=== PATIENT | female | born 1985 | race Caucasian/White ===

== ENCOUNTER 2018-01-27 16:11 | Emergency (ER) | payer BC ==
--- NOTE | 2018-01-27 17:08 | PD ---
HPI Chief Complaint ctx Date Seen: Jan 27, 2018 Time Seen: 16:56 Travel History International Travel<30 Days: No Contact w/Intl Traveler<30Days: No Known Affected Area: No History of Present Illness HPI Pt is a 32y/o @ 23.6wks. She has PNC with Dr. Mayfield. She has a h/o CI with 20wk delivery. She then requested abdominal cerclage placement prior to G2. With G2 she was on 17-OHP. She had PTL at 35.6wks and underwent 1' CS. This she is also on 17-OHP. She presents today c/o ctx starting around 2pm. She states that they are painful. She denies LOF or VB. +FM. She reports that she is well hydrated and has not had any emesis/diarrhea. Weeks Gestation: 23 Para: 2 : 3 Last Menstrual Period: Jan 27, 2018 History Past Medical History Medical History: Denies Significant Hx Obstetric History Obstetric History 1. 20wk loss 2' to CI 2. 35wk PTL, 1'CS due to abdominal cerclage, on 17-OHP 3. current, on 17-OHP Past Surgical History Narrative Surgical abdominal cerclage placement c/s Family History Family History: Negative Social History Alcohol Use: No Tobacco Use: No Substance Abuse: No Allergies-Medications (Allergen,Severity, Reaction): Coded Allergies: No Known Allergies (Verified Allergy, Mild, 05/14/08) Review of Systems Except as stated in HPI: all other systems reviewed are Neg Physical Exam Narrative General: well developed, well nourished, no acute distress HEENT: normocephalic atraumatic, extraocular movements intact, neck supple Abdomen: soft, gravid, nontender, nondistended Uterus: fundus soft just above umbilicus Extremities: full range of motion Skin: normal coloration, no rashes, no suspicious skin lesions noted Neurologic: cranial nerves 2-12 grossly intact, normal muscle tone, normal gait Psychiatric: normal mood and affect, appropriate FHTs: age appropriate NST, 150s, variables present [place]: no ctx seen Data Data Orders Orders Vital Signs (Adult) .ON ADMISSION (01/27/18 16:55) ^ Labor Status (01/27/18 16:55) Urinalysis - C+S If Indicated (01/27/18 16:55) ^ Non Stress Test (01/27/18 16:55) MDM Plan 32y/o @ 23.6wks with h/o cervical incompetence, abdominal cerclage in place, h/o PTD on 17-OHP, h/o CSx1, with reported ctx. -- toco without evidence of ctx -- uterus palpates soft even when pt states she is having a ctx -- UA negative for UTI -- FHTs age appropriate Dispo: stable for d/c home with precautions and reassurance Diagnosis Diagnosis: Primary Impression: 23 weeks gestation of Additional Impressions: Uterine contractions during History of delivery Cervical cerclage suture present Cervical incompetence History of delivery Phoenix Cooper MD Jan 27, 2018 17:08
== END 2018-01-27 18:15 | disposition home or self-care (01) ==
LOC: HOBED 16:11
DX: O47.02 False labor before 37 completed weeks of gestation, second trimester (principal); O34.32 Maternal care for cervical incompetence, second trimester; O34.219 Maternal care for unspecified type scar from previous cesarean delivery; Z3A.23 23 weeks gestation of pregnancy
CPT/HCPCS: 99283

== ENCOUNTER 2018-04-07 18:48 | Inpatient (IN) | payer BC ==
[2018-04-07] VITALS (7 sets, daily range): BP systolic 96–116; BP diastolic 52–73; PULSE 86–92; RESP 16
[~2018-04-07] VITALS: Ht 170.2 cm; Wt 72.0 kg
--- NOTE | 2018-04-07 19:35 | PD ---
HPI Chief Complaint Contractions Date Seen: April 07, 2018 Time Seen: 19:31 Travel History International Travel<30 Days: No Contact w/Intl Traveler<30Days: No Known Affected Area: No History of Present Illness HPI 32-year-old who is at 33 weeks and 6 days comes in complaining of contractions that began at approximately 4 PM. She states that they have been irregular occurring every 6-10 minutes and are mildly uncomfortable. Patient denies vaginal discharge, vaginal bleeding, or ruptured membranes. She has a history significant for an incompetent cervix with a first resulting in a 21 week loss. She had an abdominal cerclage placed prior to her second which was a section at 35 weeks and 6 days. Patient was on Rosey with her second and with this . Patient has had contractions during this but none that have lasted greater than 2 hours. Abdominal cerclage is still in place, patient was checked this morning and her cervix was closed by Dr. Mayfield Weeks Gestation: 33 Para: 2 : 3 History Past Medical History Medical History: Denies Significant Hx Obstetric History Obstetric History 21 week loss with a diagnosis of incompetent cervix section with her second child at 35-36 weeks gestation Past Surgical History Narrative Surgical Abdominal cerclage Bunionectomy Family History Family History: Negative Social History Alcohol Use: No Tobacco Use: No Substance Abuse: No Allergies-Medications (Allergen,Severity, Reaction): Coded Allergies: No Known Allergies (Verified Allergy, Mild, 05/14/08) Home Meds Reported Medications Hydroxyprogesterone Caproate Inj (Cushing Inj) 250 Mg/Ml Inj, 250 MG IM WEEKLY for , #1 VIAL 0 Refills 04/07/18 Loratadine (Claritin) 10 Mg Cap, 10 MG PO DAILY for Allergy Management, CAP 0 Refills 04/07/18 Pnv No.95/Ferrous Fum/Folic AC ( Vitamins Tablet) 28 Mg Iron-800 Mcg Tablet 04/07/18 Review of Systems Except as stated in HPI: all other systems reviewed are Neg Physical Exam Narrative GENERAL: Well-nourished, well-developed patient. SKIN: Warm and dry. HEAD: Normocephalic and atraumatic. EYES: No scleral icterus. No injection or drainage. ENT: No nasal drainage noted. Mucous membranes pink. Airway patent. NECK: Supple, trachea midline. No JVD. CARDIOVASCULAR: Regular rate and rhythm without murmurs, gallops, or rubs. RESPIRATORY: Breath sounds equal bilaterally. No accessory muscle use. ABDOMEN/GI: Abdomen soft, non-tender, bowel sounds present, no rebound, no guarding Gravid to [-33] weeks size Fundal Height: [-] GENITOURINARY: External Genitalia: intact and normal in appearance BUS glands: [Normal-] Cervix: [-] Midposition Dilatation: [-] Internal office is closed with a palpable abdominal cerclage Effacement: [-] Station: [-] Presentation: [-] High Membranes: [intact or ruptured] intact Uterine Contractions: [-] Every 3 minutes FHT's: Category: [-] 1 Baseline: [-] 140 Reactive: [-] Moderate Variability: [-] Moderate Decels: [-] Absent EXTREMITIES: No cyanosis or edema. BACK: Nontender without obvious deformity. No CVA tenderness. NEUROLOGICAL: Awake and alert. Motor and sensory grossly within normal limits. Five out of 5 muscle strength in all muscle groups. Normal speech. Data Data Vital Signs Reviewed: Yes [facility] Medical Record Reviewed: Yes Plan 32-year-old who is at 33 weeks 6 days, high risk for labor given her previous history Abdominal cerclage placed between her first and second , still intact with a close cervix on vaginal exam Unable to do fibronectin due to her previous examination today Group B strep was performed this morning and Dr. Mayfield's office Plan admission to labor delivery with magnesium sulfate and betamethasone as patient continues to contract despite IV fluids Diagnosis Diagnosis: Primary Impression: 33 weeks gestation of Additional Impressions: History of incompetent cervix, currently in third trimester uterine contractions in third trimester, antepartum Cervical cerclage suture present in third trimester Madelin Sanz MD April 07, 2018 19:35
[2018-04-07] MEDS ORDERED: LACTATED RINGER'S 1000 ML INJ 1,000 ML IV ONE (19:45)
[2018-04-07] MEDS ORDERED: MAKE250I IM (19:58)
[2018-04-07] MEDS ORDERED: CLAR10CA3 PO (19:58)
[2018-04-07] MEDS ORDERED: PRENTAB7 (19:58)
[2018-04-07 20:14] LABS: BACTERIA, URINE RARE /hpf; BILIRUBIN, URINE NEG (NEG); BLOOD, URINE NEG (NEG); GLUCOSE,URINE NEG (NEG); KETONE, URINE NEG (NEG); NITRITE,URINE NEG (NEG); PH, URINE 5.5 (5.0-8.5); SQUAMOUS EPITHELIAL CELL URINE 3 /hpf (0-5); URINE COLOR LIGHT-YELLOW (YELLW/STRAW); URINE LEUKOCYTE ESTERASE TRACE (NEG)
[2018-04-07] MEDS ORDERED: MAGNESIUM SULFATE 40 GM PREMIX 1,000 ML ONE (20:29)
[2018-04-07] MEDS ORDERED: ONDANSETRON HCL 4 MG/2 ML VIAL IV PUSH PRN (20:30)
[2018-04-07] MEDS ORDERED: ZOLPIDEM TARTRATE 5 MG TAB PO PRN (20:30)
[2018-04-07] MEDS ORDERED: PENICILLIN G POTASSIUM INJ 5,000,000 UNITS in SODIUM CHLORIDE 0.9% INJ 100 ML IV ONE (20:30)
[2018-04-07] MEDS ORDERED: MAGNESIUM SULFATE 4 GM PREMIX 100 ML IV ONE (20:30)
[2018-04-07] MEDS ORDERED: CALCIUM GLUCONATE 10% 1 GM/10 ML VIAL IV PUSH PRN (20:30)
[2018-04-07] MEDS ORDERED: SODIUM CHLORIDE 0.9% FLUSH 10 ML FLUSH IV FLUSH PRN (20:30)
[2018-04-07] MEDS: MAGNESIUM SULFATE 40 GM PREMIX 1,000 ML IV SCH (20:56)
[2018-04-07] MEDS: BETAMETHASONE SOD PHOS/ACETATE SUSP 30 MG/5 ML VIAL IM SCH (20:58)
[2018-04-07] MEDS: SODIUM CHLORIDE 0.9% FLUSH 10 ML FLUSH IV FLUSH SCH (21:00)
--- NOTE | 2018-04-07 21:45 | MH ---
cc: Bradford Mayfield MD, John A MD DATE OF ADMISSION: 04/07/2018 Time is 9:20 p.m. ADMITTING DIAGNOSIS: at 34-35 weeks with labor. HISTORY OF PRESENT ILLNESS: The patient is a 32-year-old white female, para 0-1-1-1 with an EDC of 05/20/2018 by early ultrasound. PAST OB HISTORY: Notable for her first delivery at 21 weeks for incompetent cervix. She had abdominal cerclage placed in 02/2015. She carried her second to 35-36 weeks with Jessup, delivering by 07/2016. She has had Jessup injections this since 16 weeks. She was doing well until 3:30 p.m. today. She began having frequent contractions, 3-6-12 minutes apart, increasing in strength and duration and came in for evaluation. She is now admitted for steroid therapy and magnesium sulfate therapy. PAST MEDICAL HISTORY: In 2017, she had right foot bunions. Medical illness: History of arrhythmia following her first delivery with normal cardiac evaluation. ALLERGIES: NONE. MEDICATIONS: Vitamins and Jessup. TRANSFUSIONS: None. SOCIAL HISTORY: She is . 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 Alcohol, tobacco and drugs are none. FAMILY HISTORY: Noncontributory. PHYSICAL EXAMINATION: GENERAL: Exam reveals a well-nourished, well-developed white female. VITAL SIGNS: Stable. HEENT: Normal. CHEST: Clear. BREASTS: Symmetrical. ABDOMEN: Gravid 34 weeks size, EFW 2000 grams, cervix exam with Dr. Sanz is closed. EXTREMITIES: Normal. ASSESSMENT: As above. PLAN: She is now admitted for steroid therapy and magnesium sulfate therapy for 24 hours. If successful, we will stop the magnesium tomorrow night and ,should she have breakthrough labor now or after that, proceed with delivery. We will plan ultrasound in the morning. Her most recent scan had shown a breech presentation with appropriate growth 2 weeks ago. MD ERIC Cespedes/ , 09:25 PM , 09:44 PM
[2018-04-07 22:28] LABS: AUTOMATED NEUTROPHIL # 7.3 TH/MM3 (1.8-7.7); BASOPHIL # 0.1 TH/MM3 (0-0.2); BASOPHIL % 0.5 % (0.0-2.0); EOSINOPHIL # 0.3 TH/MM3 (0-0.4); EOSINOPHIL % 2.7 % (0.0-4.0); HEMATOCRIT 38.1 % (35.0-46.0); LYMPH % 22.2 % (9.0-44.0); LYMPHOCYTE # 2.5 TH/MM3 (1.0-4.8); MEAN CELL VOLUME 89.3 FL (80.0-100.0); MEAN CORPUSCULAR HEMOGLOBIN 30.5 PG (27.0-34.0); MEAN CORPUSCULAR HGB CONC 34.1 % (32.0-36.0); MEAN PLATELET VOLUME 9.2 FL (7.0-11.0); MONO % 8.4 % (0.0-8.0); MONOCYTE # 0.9 TH/MM3 (0-0.9); NEUT % 66.2 % (16.0-70.0); PLATELET COUNT 192 TH/MM3 (150-450); RED BLOOD COUNT 4.26 MIL/MM3 (4.00-5.30); RED CELL DISTRIBUTION WIDTH 13.2 % (11.6-17.2); WHITE BLOOD COUNT 11.1 TH/MM3 (4.0-11.0)
[2018-04-08] VITALS (22 sets, daily range): BP systolic 86–105; BP diastolic 42–61; PULSE 82–109; RESP 15–20; TEMP 97.9–98.2
[2018-04-08] MEDS ORDERED: PENICILLIN G POTASSIUM INJ 2,500,000 UNITS in SODIUM CHLORIDE 0.9% INJ 100 ML IV SCH (00:30)
[2018-04-08] MEDS: PENICILLIN G POTASSIUM INJ 2,500,000 UNITS in SODIUM CHLORIDE 0.9% INJ 100 ML IV SCH ×4 (07:25→19:00)
[2018-04-08] MEDS: SODIUM CHLORIDE 0.9% FLUSH 10 ML FLUSH IV FLUSH SCH ×2 (09:00→19:42)
[2018-04-08 11:43] LABS: BICARBONATE 20.8 MEQ/L (21.0-32.0); CALCIUM 6.7 MG/DL (8.5-10.1); CREATININE 0.54 MG/DL (0.50-1.00)
[2018-04-08 12:19] LABS: TOTAL PROTEIN 6.1 GM/DL (6.4-8.2)
[2018-04-08 12:38] LABS: CALCIUM-PROTEIN CORRECTED 7.2 MG/DL (8.5-10.1)
[2018-04-08] MEDS: MAGNESIUM SULFATE 40 GM PREMIX 1,000 ML IV SCH (13:32)
[2018-04-08] MEDS ORDERED: MAGNESIUM SULFATE 1 GM PREMIX 100 ML IV ONE (14:00)
[2018-04-08] MEDS ORDERED: ACETAMINOPHEN 1000 MG/100 ML 100 ML IV SCH (16:30)
[2018-04-08] MEDS: BETAMETHASONE SOD PHOS/ACETATE SUSP 30 MG/5 ML VIAL IM SCH (22:05)
[2018-04-09] VITALS (10 sets, daily range): BP systolic 89–107; BP diastolic 51–65; PULSE 57–72; RESP 14–20; TEMP 97.5–98.3; O2SAT 98–100
[2018-04-09] MEDS: SODIUM CHLORIDE 0.9% FLUSH 10 ML FLUSH IV FLUSH SCH (08:47)
[2018-04-09] MEDS ORDERED: LACTATED RINGER'S 1000 ML INJ 1,000 ML IV ONE ×2 (10:19→12:00)
[2018-04-09] MEDS ORDERED: ACETAMINOPHEN 1000 MG/100 ML 100 ML IV ONE (10:22)
[2018-04-09] MEDS ORDERED: MORPHINE SULFATE PF 5 MG/10 ML VIAL ONE (10:22)
[2018-04-09] MEDS ORDERED: KETOROLAC TROMETHAMINE 60 MG/2 ML (IM) VIAL IM PRN (10:30)
[2018-04-09] MEDS ORDERED: OXYTOCIN 30 UNITS-500ML PREMIX 500 ML IV ONE (10:30)
[2018-04-09] MEDS: ACETAMINOPHEN 1000 MG/100 ML VIAL IV SCH ×2 (10:30→18:21)
[2018-04-09] MEDS ORDERED: MEASLES, MUMPS, RUBELLA VACCINE 0.5 ML VIAL SQ ONE (10:30)
[2018-04-09] MEDS ORDERED: oxyCODONE/ACETAMINOPHEN 5 MG/325 MG TAB PO PRN (10:30)
[2018-04-09] MEDS ORDERED: SIMETHICONE 80 MG CHEWABLE TAB PO PRN (10:30)
[2018-04-09] MEDS ORDERED: EPIDURAL-DIPHENHYDRAMINE HCL 50 MG/ML VIAL IV PUSH PRN (10:35)
[2018-04-09] MEDS ORDERED: EPIDURAL-NO SYSTEMIC NARCOTICS PRN (10:35)
[2018-04-09] MEDS ORDERED: EPIDURAL-DO NOT ADMINISTER ANTICOAGULANTS PRN (10:35)
[2018-04-09] MEDS ORDERED: EPIDURAL-NALOXONE HCL 0.4 MG/ML AMP IV PUSH PRN (10:35)
[2018-04-09] MEDS ORDERED: EPIDURAL-DIPHENHYDRAMINE HCL 50 MG CAP PO PRN (10:35)
[2018-04-09] MEDS ORDERED: LACTATED RINGER'S 1000 ML INJ 1,000 ML IV SCH ×2 (10:49→13:04)
[2018-04-09] MEDS ORDERED: ONDANSETRON ODT 4 MG TAB PO PRN (11:30)
[2018-04-09] MEDS ORDERED: ceFAZolin 2 GM PREMIX 50 ML IV SCH (11:30)
[2018-04-09] MEDS ORDERED: ePHEDrine/NS 25 MG/5 ML SYRINGE IV ONE (12:00)
[2018-04-09] MEDS ORDERED: ONDANSETRON HCL 4 MG/2 ML VIAL IV ONE (12:00)
[2018-04-09] MEDS ORDERED: CITRIC ACID-SODIUM CITRATE LIQ 30 ML UDC PO SCH (12:00)
[2018-04-09] MEDS ORDERED: OXYTOCIN 10 UNIT/ML AMP IV ONE (12:00)
[2018-04-09] MEDS ORDERED: PHENYLEPH/NS 1000 MCG/10 ML SYR IV ONE (12:00)
[2018-04-09] MEDS ORDERED: KETOROLAC TROMETHAMINE 60 MG/2 ML (IM) VIAL IM ONE (12:16)
[2018-04-09] MEDS ORDERED: OXYTOCIN 30 UNITS-500ML PREMIX 500 ML ONE (12:42)
--- NOTE | 2018-04-09 13:10 | MP ---
cc: Bradford Mayfield MD DATE OF OPERATION: 04/09/2018 DATE OF PROCEDURE: 04/09/2018 PREOPERATIVE DIAGNOSIS(ES): 1. at 34-35 weeks with labor. 2. Abdominal cerclage. 3. Previous section. 4. Breech presentation. POSTOPERATIVE DIAGNOSES: 1. at 34-35 weeks with labor. 2. Abdominal cerclage. 3. Previous section. 4. Breech presentation. 6. Delivered. PROCEDURE PERFORMED: Repeat low transverse section. ANESTHESIA: Spinal. SURGEON: Bradford Mayfield MD ESTIMATED BLOOD LOSS: About 600 mL. FLUIDS: 900 mL. OBJECTIVE FINDINGS: Following induction of adequate spinal anesthesia, the patient was prepped and draped supine on the operating table in left lateral tilt position in usual sterile fashion, with the bladder being drained via Haywood catheterization. The abdomen was opened through a Pfannenstiel incision using a knife to cut down through the skin to the fascia. The fascia was opened transversely, stripped from the muscles, rectus muscle split in the midline and the peritoneum opened sharply without incident. The bladder flap was taken down sharply. The abdominal cerclage was identified; it was inferior. The lower uterine segment was very thinned out and was ballooning out. It was opened transversely with a knife and extended with blunt dissection. There was clear fluid. Baby was in the shaun breech presentation, right sacral transverse. With rope tow operator guidance and fundal pressure, delivery progressed easily to the shoulder blades. Each arm was reduced. Head delivered gently. The mouth suctioned. The cord clamped and cut after milking, and the baby passed to awaiting team. A viable vigorous female. Weight was 5 pounds 4 ounces. Cord blood was taken for typing, the placenta for donation. The uterine cavity wiped clean with laps. Uterus exteriorized. Uterine wound closed in 2 layers of running suture, first a running locking stitch of Vicryl, second running imbricating stitch of Vicryl. Posterior inspection of the uterus, tubes, and ovaries noted to be normal uterus. The uterus was replaced in the peritoneal cavity. Irrigation performed. No bleeding was evident and the bladder flap was closed with running stitch of 3-0 Vicryl. All laps and retractors were removed. Counts were correct. The anterior peritoneum closed with running stitch of 2-0 Vicryl. The fascia with a running locking stitch 3-0 Vicryl, corners to the midline and tied. Subq closed with running 3-0 Vicryl and the skin with running subcuticular 3-0 Monocryl. Dermabond applied. All counts were correct and the patient was awakened and taken to the recovery in good condition. MD ERIC Cespedes/JOANN , 11:37 AM , 01:10 PM
[2018-04-09] MEDS ORDERED: LACTATED RINGER'S 1000 ML INJ 500 ML IV STA (16:13)
[2018-04-09 16:54] LABS: HEMATOCRIT 37.9 % (35.0-46.0); HEMOGLOBIN 12.9 GM/DL (11.6-15.3)
[2018-04-09] MEDS ORDERED: OXYTOCIN 30 UNITS-500ML PREMIX 500 ML IV PRN (18:15)
[2018-04-09] MEDS ORDERED: ZOLPIDEM TARTRATE 5 MG TAB PO PRN (21:00)
[2018-04-10 00:25] VITALS: BP 95/58; PULSE 58; RESP 18; TEMP 98.2
[2018-04-10] MEDS: ACETAMINOPHEN 1000 MG/100 ML VIAL IV SCH (02:30)
[2018-04-10 04:09] VITALS: BP 96/48; PULSE 70; RESP 18; TEMP 98.3
[2018-04-10 04:56] LABS: AUTOMATED NEUTROPHIL # 11.9 TH/MM3 (1.8-7.7); BASOPHIL # 0.1 TH/MM3 (0-0.2); BASOPHIL % 0.4 % (0.0-2.0); EOSINOPHIL % 0.2 % (0.0-4.0); HEMATOCRIT 38.6 % (35.0-46.0); HEMOGLOBIN 13.1 GM/DL (11.6-15.3); LYMPH % 12.4 % (9.0-44.0); LYMPHOCYTE # 1.9 TH/MM3 (1.0-4.8); MEAN CELL VOLUME 90.4 FL (80.0-100.0); MEAN CORPUSCULAR HEMOGLOBIN 30.7 PG (27.0-34.0); MEAN CORPUSCULAR HGB CONC 33.9 % (32.0-36.0); MEAN PLATELET VOLUME 8.8 FL (7.0-11.0); MONOCYTE # 1.4 TH/MM3 (0-0.9); PLATELET COUNT 231 TH/MM3 (150-450); RED BLOOD COUNT 4.27 MIL/MM3 (4.00-5.30); RED CELL DISTRIBUTION WIDTH 13.3 % (11.6-17.2); WHITE BLOOD COUNT 15.2 TH/MM3 (4.0-11.0)
[2018-04-10 05:24] LABS: BICARBONATE 23.9 MEQ/L (21.0-32.0); CALCIUM 8.3 MG/DL (8.5-10.1); CREATININE 0.58 MG/DL (0.50-1.00)
[2018-04-10] MEDS: KETOROLAC TROMETHAMINE 30 MG/ML (IVP) VIAL IV PUSH PRN ×3 (05:39→19:07)
[2018-04-10 08:06] VITALS: BP 97/53; PULSE 69; RESP 20; TEMP 98.3; O2SAT 96
[2018-04-10] MEDS: DOCUSATE SODIUM 50 MG/SENNA 8.6 MG TAB PO PRN (19:06)
[2018-04-10 19:30] VITALS: BP 94/63; PULSE 60; RESP 16; TEMP 98.1
[2018-04-11] MEDS: KETOROLAC TROMETHAMINE 30 MG/ML (IVP) VIAL IV PUSH PRN ×3 (03:52→15:52)
[2018-04-11] MEDS ORDERED: DIPHTH/TETANUS/ACEL PERTUSSIS (BOOSTER) 0.5 ML VIAL/PFS IM ONE (09:00)
[2018-04-11] MEDS ORDERED: ACETAMINOPHEN 325 MG TAB PO PRN (17:30)
[2018-04-11] MEDS: oxyCODONE/ACETAMINOPHEN 5 MG/325 MG TAB PO PRN ×2 (18:15→22:52)
[2018-04-11] MEDS: DOCUSATE SODIUM 50 MG/SENNA 8.6 MG TAB PO PRN (18:15)
[2018-04-11 19:58] VITALS: BP 98/53; PULSE 74; RESP 18; TEMP 98
[2018-04-11] MEDS: IBUPROFEN 600 MG TAB PO PRN (22:52)
[2018-04-12] MEDS: IBUPROFEN 600 MG TAB PO PRN ×2 (04:58→11:04)
[2018-04-12] MEDS: oxyCODONE/ACETAMINOPHEN 5 MG/325 MG TAB PO PRN ×2 (04:59→11:03)
[2018-04-12 07:31] VITALS: BP 99/69; PULSE 70; RESP 18; TEMP 97.4; O2SAT 100
[2018-04-12 08:00] VITALS: BP 99/64; PULSE 70; RESP 18; TEMP 97.4
--- NOTE | 2018-04-12 08:43 | HHI.DCPOC ---
Discharge Care Plan Report Symptoms to Your Doctor -Temperature above 100.5 degrees -Redness, of incision or excessive or foul smelling drainage -Unusual pain or calf pain -Increased vaginal bleeding -Painful or difficulty urinating -Feelings of extreme sadness or anxiety after 2 weeks Goals to Promote Your Health * To prevent worsening of your condition and complications * To maintain your health at the optimal level Directions to Meet Your Goals Take your medications as prescribed Follow your dietary instruction Follow activity as directed Ensure plenty of rest for recovery Drink fluids for hydration Keep your appointments as scheduled Take your immunizations and boosters as scheduled If your symptoms worsen call your PCP, if no PCP go to Urgent Care Center or Emergency Room Smoking is Dangerous to Your Health. Avoid second hand smoke Call the 24-hour crisis hotline for domestic abuse at Bradford Mayfield MD April 12, 2018 08:43
[2018-04-12] MEDS ORDERED: OXYC1TAB63 PO (08:44)
--- NOTE | 2018-04-12 09:07 | MD ---
cc: Bradford Mayfield MD DATE OF DISCHARGE: ADMITTING DIAGNOSIS: at 34-35 weeks with labor, abdominal cerclage, previous , breech presentation. DISCHARGE DIAGNOSIS: at 34-35 weeks with labor, abdominal cerclage, previous , breech presentation, delivered. HISTORY OF PRESENT ILLNESS: The patient is a 32-year-old white female, para 1-1-0-2, with an EDC of 05/20/2018 by early ultrasound. OB HISTORY: Notable for her first delivery at 29 weeks, incompetent cervix in a 2013. In 2014, she had an abdominal cerclage placed. In 2016, she carried a to 35-36 weeks, delivered by for labor and breech abdominal cerclage. During this , she was maintained on Rosey from 16 weeks. She had normal first trimester and panorama screening and normal ultrasound followup. She developed labor on the date of admission, received steroid therapy and magnesium therapy for about 18 hours and discontinuing secondary to intolerance and got both doses of steroids. She was observed overnight on Wednesday night and developed recurrent labor on the morning of 04/09/2018. She was delivered by repeat section, a breech presentation, a viable vigorous female weighing 5 pounds 4 ounces. she did well with gradual advancement of diet and activity and discharged home in excellent condition on 04/12/2018. She was advised NPV, light activity, no driving, return to see me in one week. She will take her routine vitamins and iron pills at home. She was given a prescription for Percocet 5 one to two p.o. q. 4 hours p.r.n. pain, #30. Bradford Mayfield MD JAW/DL , 08:49 AM , 09:06 AM
[2018-04-12] MEDS: DOCUSATE SODIUM 50 MG/SENNA 8.6 MG TAB PO PRN (11:02)
== END 2018-04-12 12:33 | disposition home or self-care (01) | DRG 765 ==
LOC: HOBED 18:48 → H2EA 20:30 → H1EA 04-09 14:14
PROVIDERS: ADMIT Obstetrics & Gynecology; ATTEND Obstetrics & Gynecology
PROC: 10D00Z1 Extraction of Products of Conception, Low, Open Approach (ICD-10-PCS; principal; 2018-04-09)
DX: O60.14X0 Preterm labor third trimester with preterm delivery third trimester, not applicable or unspecified (principal); O34.33 Maternal care for cervical incompetence, third trimester; O32.1XX0 Maternal care for breech presentation, not applicable or unspecified; Z37.0 Single live birth; Z87.51 Personal history of pre-term labor; O34.211 Maternal care for low transverse scar from previous cesarean delivery; Z3A.35 35 weeks gestation of pregnancy
CPT/HCPCS: 59025; 76816; 80048; 80307; 81001; 83735; 84155; 85014; 85018; 85025; 86850; 86900; 86901; 90715; 96360; G0481; J0131; J0690; J0702; J1885; J2274; J2370; J2405; J2540; J2590; J3475; J7120